=== PATIENT | male | born 1960 | race Hispanic/Latino ===

== ENCOUNTER 2020-10-13 12:10 | Emergency (ER) | payer SELFPAY ==
[~2020-10-13] VITALS: Ht 165.1 cm; Wt 72.6 kg
[2020-10-13 12:12] VITALS: BP 187/91
[2020-10-13 14:05] LABS: APPEARANCE,URINE Clear (CLEAR); BILIRUBIN,URINE Negative (NEGATIVE); COLOR,URINE Yellow (YELLOW); GLUCOSE, URINE (UA) Negative (NEGATIVE); KETONES,URINE 40 mg/dL (NEGATIVE); LEUKOCYTE ESTERASE ,URINE Negative (NEGATIVE); NITRATE,URINE Negative (NEGATIVE); OCCULT BLOOD,URINE Negative (NEGATIVE); PROTEIN,URINE Negative (NEGATIVE)
[2020-10-13 14:13] LABS: RBC,URINE 0-1 /HPF (0-1)
[2020-10-13 14:14] LABS: BACTERIA,URINE Rare /HPF (None Seen); SQUAMOUS EPITHELIAL CELL,UR Moderate /HPF (0-2)
[2020-10-13 14:18] LABS: BASOPHILS % (AUTO) 0.4 % (0.0-5.0); HEMATOCRIT 45.6 % (42-54); MEAN CORPUSCULAR HEMOGLOBIN 31.8 pg (27.0-33.0); MEAN CORPUSCULAR HGB CONC 33.8 g/dL (32.0-36.0); MEAN CORPUSCULAR VOLUME 94.2 fL (79-99); MONOCYTES % (AUTO) 3.2 % (3.0-13.0); NEUTROPHILS % (AUTO) 87.1 % (40.0-77.0); PLATELET COUNT (AUTO) 320 K/uL (130-400); RED BLOOD CELL COUNT(AUTO) 4.84 MIL/uL (4.50-6.20); WHITE BLOOD COUNT (AUTO) 10.6 K/uL (4.8-10.8)
[2020-10-13 14:26] LABS: CREATININE 0.8 mg/dL (0.5-1.5); POTASSIUM 3.9 mmol/L (3.5-5.1)
[2020-10-13 14:33] LABS: ALBUMIN 3.8 g/dL (3.5-5.0); BILIRUBIN,TOTAL 0.6 mg/dL (0.2-1.0); TOTAL PROTEIN, SERUM 8.4 g/dL (6.0-8.3)
[2020-10-13] MEDS ORDERED: IBUPROFEN 600 MG TABLET ONE (17:03)
[2020-10-13] MEDS ORDERED: IBUP-2070 PO (17:05)
[2020-10-13 17:09] VITALS: BP 158/89
[2020-10-13] MEDS ORDERED: IBUPROFEN 400 MG TABLET PO ONE (17:15)
== END 2020-10-13 17:09 | disposition home or self-care (01) ==
LOC: EDH 12:10 → EEVIPCON 12:10 → EDH 17:09
DX: K62.5 Hemorrhage of anus and rectum (principal); Z79.1 Long term (current) use of non-steroidal anti-inflammatories (NSAID); Z65.3 Problems related to other legal circumstances; I10 Essential (primary) hypertension; F10.10 Alcohol abuse, uncomplicated; E78.00 Pure hypercholesterolemia, unspecified
CPT/HCPCS: 36415; 80053; 81001; 82270; 85025